=== PATIENT | male | born 1965 | race African-American/Black ===

== ENCOUNTER 2025-02-13 08:07 | Day surgery (SDC) | payer OTHER, SELFPAY ==
--- OUTSIDE RECORDS SUMMARY | 2025-01-28 08:45 | XMS_ITS | Encounter Summary ---
Author Organization [facility] Address [address] [address] Phone Care Team Providers Care Lime Mixer Name Role Phone Regulo Dent MD Primary Care Provider [phone] Reason for Visit * Reason Comments Stage 3b chronic kidney disease ( Encounter Details Date Type Department Care Team (Latest Contact Info) Description 01/28/2025 8:45 AM EDT Office Visit [facility] [address] [address] Sejal Newby ARNP [address] [address] Chronic kidney disease, stage 4 (severe) (HCC) (Primary Dx); Primary hypertension; Vitamin D deficiency, not otherwise specified; Secondary hyperparathyroidism of renal origin (HCC) Social History Tobacco Use Types Packs/Day Years Used Date Smoking Tobacco: Never Smokeless Tobacco: Never Alcohol Use Standard Drinks/Week Comments Never 0 (1 standard drink = 0.6 oz pur e alcohol) Sex and Gender Information Value Date Recorded Sex Assigned at Not on file Legal Sex Male 11:51 AM EDT Gender Identity Not on file Sexual Orientation Not on file documented as of this encounter Last Filed Vital Signs Vital Sign Reading Time Taken Comments Blood Pressure 120/84 01/28/2025 8:49 AM EDT Pulse 62 01/28/2025 8:49 AM EDT Temperature - - Respiratory Rate - - Oxygen Saturation 99% 01/28/2025 8:49 AM EDT Inhaled Oxygen Concentration - - Weight 94.9 kg (209 lb 3.2 oz) 01/28/2025 8:49 A M EDT Height - - Body Mass Index - - documented in this encounter Patient Instructions * Patient Instructions* Sejal Newby ARNP - 01/28/2025 8:45 AM EDT Blood pressure monitoring education: Monitor home blood pressure values after sitting for 5 minutes with back and arm support. Keep a log. Bring your log and blood pressure cuff to your next visit. documented in this encounter Progress Notes * Sejal Newby ARNP - 01/28/2025 8:45 AM EDT Images from the original note were not included. Patient Name: Manjinder Dolan Jr., Male Date of : 1965, 59 y.o. Date: 01/28/2025 History of Present Illness Manjinder Dolan Jr. is a 59 y.o. male with pmh of sinusitis, uncontrolled hypertension 26 years, dyslipidemia, Obese class I , sarah beth on cpap, BPH, presents for management of htn and ckd No dm His bp control has been good recently per patient at home 114/70s He reported Dyspnea on exertion in earlier visit and in had stress echo which was normal - Reports lifestyle changes including cutting out salt, sugar, and red meat, increasing plant-basedfood intake, and walking 5 miles a day. - Reports continued voluntary weight loss - Reports increased fluid intake to 64 fluid ounces per day. The following portions of the patient's chart were reviewed in this encounter and updated as appropriate: Allergies Meds Problems Med Hx Surg Hx Fam Hx EMR: [employer]/ [employer] and [employer] / [employer] Past Medical History: Diagnosis Date Chronic kidney disease Essential hypertension Hypertensive emergency Other and unspecified hyperlipidemia Proteinuria Stage 3 chronic kidney disease (HCC) Vitamin D deficiency, not otherwise specified Review of Systems Constitutional: Negative for chills, fever, weight gain and weight loss. HENT: Negative for congestion, hearing loss and nosebleeds. Eyes: Negative for blurred vision and double vision. Respiratory: Negative for cough and shortness of breath. Cardiovascular: Negative for chest pain, palpitations and leg swelling. Gastrointestinal: Negative for abdominal pain, diarrhea, nausea, vomiting and poor appetite. Genitourinary: Positive for nocturia. Negative for dysuria, flank pain, frequency, hematuria, urgency and urinary hesitancy. 1-2x/night - stable BPH followed by Dr. Swift in Urology Musculoskeletal: Negative. Skin: Negative for rash. Neurological: Negative for dizziness, tingling, numbness and headaches. Psychiatric/Behavioral: Negative. All other systems reviewed and are negative. Medication List Current Outpatient Medications Medication Sig Dispense Refill ALPRAZolam (XANAX) 0.25 MG tablet Take 0.25 mg by mouth at night if needed for anxiety amLODIPine (NORVASC) 10 MG tablet Take 10 mg by mouth 1 (one) time each day carvedilol (COREG) 12.5 MG tablet TAKE 1 TABLET (12.5 MG TOTAL) BY MOUTH IN THE MORNING AND IN THE EVENING WITH MEALS 180 tablet 3 Cholecalciferol 250 MCG (26671 UT) capsule TAKE 1 CAPSULE BY MOUTH EVERY 7 DAYS. 12 capsule 0 Dapagliflozin Propanediol (Farxiga) 10 MG tablet Take 10 mg by mouth 1 (one) time each day in the morning 30 tablet 11 Icosapent Ethyl (Vascepa) 1 g capsule Take by mouth losartan (COZAAR) 50 MG tablet Take 50 mg by mouth 1 (one) time each day meclizine (ANTIVERT) 25 MG tablet Take 25 mg by mouth 3 (three) times a day if needed for dizziness ondansetron ODT (ZOFRAN-ODT) 4 MG dispersible tablet Take 4 mg by mouth every 8 (eight) hours if needed for nausea or vomiting tamsulosin (FLOMAX) 0.4 MG 24 hr capsule Take 0.4 mg by mouth 1 (one) time each day No current facility-administered medications for this visit. Allergy List Allergies Allergen Reactions Lisinopril Physical Exam BP 120/84 (BP Location: Right upper arm, Patient Position: Sitting, BP Cuff Size: Adult) Pulse 62 Wt 209 lb 3.2 oz (94.9 kg) SpO2 99% Vitals reviewed. Constitutional: He is oriented to person, place, and time. He does not appear ill. No distress. HEENT: Mouth/Throat: Oropharynx is clear and moist. Eyes: Conjunctivae are normal. Neck: No JVD present. Cardiovascular: Normal rate and regular rhythm. No murmur heard.He exhibits no edema. Pulmonary/Chest: Effort normal and breath sounds normal. Abdominal: Soft. Musculoskeletal: Normal range of motion. Neurological: He is alert and oriented to person, place, and time. Skin: Skin is warm and dry. No rash noted. No erythema. Psychiatric: He has a normal mood and affect. His behavior is normal. Judgment normal. Labs Chemistry Lab Units 01/24/25 0803 01/07/25 0807 10/03/24 0916 06/13/24 0916 06/12/24 0858 04/03/24 0000 07/26/23 0000 05/11/23 0000 SODIUM mmol/L 138 141 143 141 141 141 143 140 142 POTASSIUM mmol/L 4.0 4 4.4 4.3 4.3 4.2 4.0 3.9 3.9 CO2 mmol/L 22 27 27 25 25 24 24 24 29 BUN mg/dL 35* 38* 30* 41* 41* 40* 41* 30* 23* CREATININE mg/dL 2.52* 2.63* 2.39* 2.65* 2.65* 2.59* 3.17* 2.40* 2.22* CHLORIDE mmol/L 108 109 110 110 110 110 -- 110.0* 109.0* ALBUMIN g/dL 3.5 3.8 3.8 -- 3.8 -- 3.5 3.4* EGFRNAFR -- -- -- -- -- 22 -- 33 EGFR mL/min/1.73m2 28* 27* 30* 27* 27* 28* -- -- -- HEMOGLOBIN g/dL 12.5* -- -- 12.5* -- 11.9* -- 12.6* HEMATOCRIT % 40.7* -- -- 41.1* -- 37.9* -- 38.2* PLATELETS AUTO K/mcL 205 -- -- 227 -- 219 -- 248 Bone Mineral Lab Units 01/24/25 0803 01/07/25 0807 10/03/24 0916 06/13/24 0916 06/12/24 0858 07/26/23 0000 05/11/23 0000 CALCIUM mg/dL 8.8 9.2 9.1 9.2 9.2 9.2 < > 8.7 PHOSPHORUS mg/dL 3.8 -- -- 3.4 -- -- 3.1 PTH pcg/mL 141.8* -- -- 153.2* -- -- -- VIT D 25 HYDROXY ng/mL 34.6 -- -- 9.4* -- -- -- MAGNESIUM mg/dL 2.2 -- -- 2.3 -- -- -- < > = values in this interval not displayed. Urine Lab Units 01/24/25 0810 06/13/24 0917 04/03/24 0000 PROT/CREAT RATIO UR mg/mg creat 0.39* 0.26* 104.3 ALB MG/G CREAT UR mg/g creat 248* 248* 178* -- Iron Studies Lab Units 01/24/25 0803 06/13/24 0916 FERRITIN ng/mL 738* 924* TIBC mcg/dL 306 285 IRON SATURATION % 22 25 Renal Doppler US: 2017 Doppler interrogation of the renal arteries demonstrates increased renal artery velocities in the mid [198 cm/s] to distal [201.2 cm/s] right renal artery possible renal artery suggesting stenosis. IMPRESSION: Possible renal artery stenosis in the mid to distal right renal artery. Renal US( cis)- Right kidney: 12.2 cm in length. No hydronephrosis. Increased parenchymal echogenicity. No stones. No suspicious mass. Simple cyst measuring 5.2 x 4.4 x 4.2 cm in the interpolar kidney. Left kidney: 11.9 cm in length. No hydronephrosis. Increased parenchymal echogenicity. Small echogenic focus within the lower pole with mild posterior shadowing and twinkle artifact which may represent a nonobstructing stone. No suspicious mass. Few simple cysts, largest measuring 2.8 x 2.1 x 2.2 cm with septation in the upper pole. IMPRESSION: 1. Echogenic kidneys likely representing medical renal disease. 2. Simple cysts present in both kidneys. Largest on the right measures 5.2 x 4.4 x 4.2 cm. Largest on the left measures 2.8 x 2.1 x 2.2 cm. 3. Likely small nonobstructing stone within the left kidney lower pole. Assessment & Plan 1. Chronic kidney disease, stage 4 (severe) (HCC) 2. Primary hypertension 3. Vitamin D deficiency, not otherwise specified 4. Secondary hyperparathyroidism of renal origin (HCC) Noted that his cr has been fluctuating between 1.4--> 1.6 from 2012 to 2016. cr 2.2 --> 2.4---> 2.7--> 3.2---> 2.65 --> 2.3, egfr 30 (CKD epi/ cyst- 1.7). Normal lytes/Ca Noted that he had had microalbuminuria prior to 2016. albuminuria improved from 1.6 g--> 100 ---> 178 mg latest on dapaglifozin UPC ratio mildly elevated at 0.26 gm as of 06/13/2024 Nn carvedilol 12.5 mg twice a day. Blood pressure is good today and controlled at home per patient - PTH: 153 as of 06/2024 - borderline - HbA1c: 4.7 Plan Continue losartan 50 mg and dapaglifozin to 10mg He has albuminuria likely due to longstanding hypertension and obesity causing secondary FSGS. Negative Immunofixation UA is bland except for the albuminuria. Maintain good BP control No DM - normal HgbA1c Genetic testing Negative as of 07/2024 Will discuss biopsy in follow up once initial work up complete PTH 141, normal Ca/Phos, consider calcitriol when PTH >150 Taking Vit D supp for Vit D deficiency with improved Vit D25 level Return in about 3 months (around 04/30/2025) for Next scheduled follow-up with Dr. Vivar. RAFAEL Randall Cosigned by Adryan Stern MD at 01/28/2025 12:26 PM EDT documented in this encounter Plan of Treatment Upcoming Encounters Date Type Department Care Team (Late st Contact Info) Description 05/24/2025 9:15 AM EDT Office Visit [facility] [address] [phone] Foster An MD [address] [facility] [address] [place] [address] Scheduled Orders Name Type Priority Associated Diagnoses Orde r Schedule PTH, intact Lab Routine Chronic kidney disease, stage 4 (severe) (HCC) Primary hypertension Vitamin D deficiency, not otherwise specified Secondary hyperparathyroidism of renal origin (HCC) Expected: 04/14/2025, Expires: 05/31/2025 Renal function panel Lab Routine Chronic kidney disease, stage 4 (severe) (HCC) Primary hypertension Vitamin D deficiency, not otherwise specified Secondary hyperparathyroidism of renal origin (HCC) Expected: 04/14/2025, Expires: 05/31/2025 CBC Lab Routine Chronic kidney disease, stage 4 (severe) (HCC) Primary hypertension Vitamin D deficiency, not otherwise specified Secondary hyperparathyroidism of renal origin (HCC) Expected: 04/14/2025, Expires: 05/31/2025 Urine Albumin / Creatinine Ratio Lab Routine Chronic kidney disease, stage 4 (severe) (HCC) Primary hypertension Vitamin D deficiency, not otherwise specified Secondary hyperparathyroidism of renal origin (HCC) Expected: 04/14/2025, Expires: 05/31/2025 Urine Protein / creatinine ratio Lab Routine Chronic kidney disease, stage 4 (severe) (HCC) Primary hypertension Vitamin D deficiency, not otherwise specified Secondary hyperparathyroidism of renal origin (HCC) Expected: 04/14/2025, Expires: 05/31/2025 documented as of this encounter Visit Diagnoses Diagnosis Chronic kidney disease, stage 4 (severe) (HCC)- Primary Primary hypertension Vitamin D deficiency, not otherwise specified Secondary hyperparathyroidism of renal origin (HCC) Secondary hyperparathyroidism of renal origin documented in this encounter Care Teams Lime Mixer Relationship Specialty Start Date End Date Regulo Dent MD [address] [facility] [address] [place] [address] PCP - General Internal Medicine 05/30/23 documented as of this encounter
--- OUTSIDE RECORDS SUMMARY | 2025-01-31 15:02 | XMS_ITS | Clinical Summary ---
Author Organization [facility] Address [address] [place] [address] [address] Man Name Role Phone Unavailable Primary Care Provider Unavailabl e Social History Tobacco Use Types Packs/Day Years Used Date Smoking Tobacco: Never Assessed Sex and Gender Information Value Date Recorded Sex Assigned at Not on file Gender Identity Not on file Sexual Orientation Not on file Plan of Treatment Health Maintenance Due Date Last Done Comments Hepatitis C Screening 1965 COVID-19 Vaccine (#1) 01/28/1964 Depression Screening 1975 Preventative Health Evaluation 1981 DTap / Tdap / Td (1 - Tdap) 1982 Colon Cancer Screening (Colonoscopy) 2008 Shingrix-Zoster Vaccine (1 of 2) 2013 Influenza Vaccine (Season Ended) 2025 RSV Adult > 60+ Yrs or Pregn ant (1 - 1-dose 75+ series) 2038 Hepatitis B Vaccines Aged Out No long er eligible based on patient's age to complete this topic Pneumococcal Vaccine Aged Out No long er eligible based on patient's age to complete this topic RSV Ped < 20 months Aged Out No longe r eligible based on patient's age to complete this topic
--- OUTSIDE RECORDS SUMMARY | 2025-01-31 15:03 | XMS_ITS | Clinical Summary ---
Author Organization [address] Address [address] [place] [phone] Phone Care Team Providers Care Ambulatory Care Name Role Phone Regulo Dent MD Primary Care Provider [phone] Social History Tobacco Use Types Packs/Day Years Used Date Smoking Tobacco: Never Assessed Sex and Gender Information Value Date Recorded Sex Assigned at Not on file Legal Sex Male 9:13 PM EST Gender Identity Not on file Sexual Orientation Not on file Plan of Treatment Health Maintenance Due Date Last Done Comments DTaP,Tdap,and Td Vaccines (1 - Tdap) 1982 Pneumococcal Vaccine: 50+ Years (1 of 1 - PCV) 2013 Zoster Vaccines (1 of 2) 2013 Colorectal Cancer Screening: Colonoscopy 08/26/2023 Depression Screening 08/26/2023 HIV Screening 08/26/2023 Hepatitis C Screening 08/26/2023 Social Influencers of Health Screening 08/26/2023 COVID-19 Vaccine ( season) 2024 06/28/2023, 07/13/2021, 10/30/2020, Additional history exists Influenza Vaccine (#1) 2025 , 07/13/2021, 04/21/2020 Hypertension/CHF/CAD Annual BMP Blood Test 01/24/2026 01/24/2025, 01/07/2025, 10/03/2024, Additional history exists Cholesterol Screening (Lipid Panel) 06/12/2029 06/12/2024, 06/12/2024 RSV Immunization Adult Patients (1 - 1-dose 75+ series) 2038 HIB Vaccines Aged Out No longer eligi ble based on patient's age to complete this topic HPV Vaccines Aged Out No longer eligi ble based on patient's age to complete this topic Hepatitis A Vaccines Aged Out No long er eligible based on patient's age to complete this topic Hepatitis B Vaccines Aged Out No long er eligible based on patient's age to complete this topic IPV Vaccines Aged Out No longer eligi ble based on patient's age to complete this topic MMR Vaccines Aged Out No longer eligi ble based on patient's age to complete this topic Meningococcal ACWY Vaccine Aged Out N o longer eligible based on patient's age to complete this topic Meningococcal B Vaccine Aged Out No l onger eligible based on patient's age to complete this topic Pneumococcal Vaccine: Pediatrics (0 to 5 Years) and At-Risk Patients (6 to 64 Years) Aged Out No longer eligible based on patient's age to complete this topic RSV Immunization Patients Under 20 months Aged Out No longer eligible based on patient's age to complete this topic Varicella Vaccines Aged Out No longer eligible based on patient's age to complete this topic Procedures Procedure Name Priority Date/Time Associated Diagnosis Comments URINALYSIS WITH REFLEX MICROSCOPIC Routine 01/24/2025 8:10 AM EDT Chronic kidney disease (CKD) stage G3b/A1, moderately decreased glomerular filtration rate (GFR) between 30-44 mL/min/1.73 square meter and albuminuria creatinine ratio les* (CMS/HCC V24, CMS/HCC V28) MICROALBUMIN CREATININE URINE RATIO Routine 01/24/2025 8:10 AM EDT Chronic kidney disease (CKD) stage G3b/A1, moderately decreased glomerular filtration rate (GFR) between 30-44 mL/min/1.73 square meter and albuminuria creatinine ratio les* (CMS/HCC V24, CMS/HCC V28) PROTEIN AND CREATININE WITH RATIO, URINE Routine 01/24/2025 8:10 AM EDT Chronic kidney disease (CKD) stage G3b/A1, moderately decreased glomerular filtration rate (GFR) between 30-44 mL/min/1.73 square meter and albuminuria creatinine ratio les* (CMS/HCC V24, CMS/HCC V28) URINALYSIS WITH REFLEX MICROSCOPIC Routine 01/24/2025 8:10 AM EDT Chronic kidney disease (CKD) stage G3b/A1, moderately decreased glomerular filtration rate (GFR) between 30-44 mL/min/1.73 square meter and albuminuria creatinine ratio les* (CMS/HCC V24, CMS/HCC V28) IN IMMUNOFIXATION ELECTROPHORESIS SERUM Routine 01/24/2025 8:03 AM EDT Chronic kidney disease (CKD) stage G3b/A1, moderately decreased glomerular filtration rate (GFR) between 30-44 mL/min/1.73 square meter and albuminuria creatinine ratio les* (CMS/HCC V24, CMS/HCC V28) IMMUNOGLOBULINS IGG, IGA, IGM Routine 01/24/2025 8:03 AM EDT Chronic kidney disease (CKD) stage G3b/A1, moderately decreased glomerular filtration rate (GFR) between 30-44 mL/min/1.73 square meter and albuminuria creatinine ratio les* (CMS/HCC V24, CMS/HCC V28) CBC WITH AUTO DIFFERENTIAL Routine 01/24/2025 8:03 AM EDT Chronic kidney disease (CKD) stage G3b/A1, moderately decreased glomerular filtration rate (GFR) between 30-44 mL/min/1.73 square meter and albuminuria creatinine ratio les* (CMS/HCC V24, CMS/HCC V28) IMMUNOFIXATION ELECTROPHORESIS Routine 01/24/2025 8:03 AM EDT Chronic kidney disease (CKD) stage G3b/A1, moderately decreased glomerular filtration rate (GFR) between 30-44 mL/min/1.73 square meter and albuminuria creatinine ratio les* (CMS/HCC V24, CMS/HCC V28) KAPPA-LAMBDA QUANTITATIVE FREE LIGHT CHAINS Routine 01/24/2025 8:03 AM EDT Chronic kidney disease (CKD) stage G3b/A1, moderately decreased glomerular filtration rate (GFR) between 30-44 mL/min/1.73 square meter and albuminuria creatinine ratio les* (CMS/HCC V24, CMS/HCC V28) URIC ACID Routine 01/24/2025 8:03 AM EDT Chronic kidney disease (CKD) stage G3b/A1, moderately decreased glomerular filtration rate (GFR) between 30-44 mL/min/1.73 square meter and albuminuria creatinine ratio les* (CMS/HCC V24, CMS/HCC V28) FERRITIN Routine 01/24/2025 8:03 AM EDT Chronic kidney disease (CKD) stage G3b/A1, moderately decreased glomerular filtration rate (GFR) between 30-44 mL/min/1.73 square meter and albuminuria creatinine ratio les* (CMS/HCC V24, CMS/HCC V28) IRON AND TIBC Routine 01/24/2025 8:03 AM EDT Chronic kidney disease (CKD) stage G3b/A1, moderately decreased glomerular filtration rate (GFR) between 30-44 mL/min/1.73 square meter and albuminuria creatinine ratio les* (CMS/HCC V24, CMS/HCC V28) HEMOGLOBIN A1C Routine 01/24/2025 8:03 AM EDT Chronic kidney disease (CKD) stage G3b/A1, moderately decreased glomerular filtration rate (GFR) between 30-44 mL/min/1.73 square meter and albuminuria creatinine ratio les* (CMS/HCC V24, CMS/HCC V28) MAGNESIUM Routine 01/24/2025 8:03 AM EDT Chronic kidney disease (CKD) stage G3b/A1, moderately decreased glomerular filtration rate (GFR) between 30-44 mL/min/1.73 square meter and albuminuria creatinine ratio les* (CMS/HCC V24, CMS/HCC V28) VITAMIN D 25 HYDROXY Routine 01/24/2025 8:03 AM EDT Chronic kidney disease (CKD) stage G3b/A1, moderately decreased glomerular filtration rate (GFR) between 30-44 mL/min/1.73 square meter and albuminuria creatinine ratio les* (CMS/HCC V24, CMS/HCC V28) PARATHYROID HORMONE INTACT Routine 01/24/2025 8:03 AM EDT Chronic kidney disease (CKD) stage G3b/A1, moderately decreased glomerular filtration rate (GFR) between 30-44 mL/min/1.73 square meter and albuminuria creatinine ratio les* (CMS/HCC V24, CMS/HCC V28) RENAL FUNCTION PANEL Routine 01/24/2025 8:03 AM EDT Chronic kidney disease (CKD) stage G3b/A1, moderately decreased glomerular filtration rate (GFR) between 30-44 mL/min/1.73 square meter and albuminuria creatinine ratio les* (CMS/HCC V24, CMS/HCC V28) CBC AND DIFFERENTIAL Routine 01/24/2025 8:03 AM EDT Chronic kidney disease (CKD) stage G3b/A1, moderately decreased glomerular filtration rate (GFR) between 30-44 mL/min/1.73 square meter and albuminuria creatinine ratio les* (CMS/HCC V24, CMS/HCC V28) CYSTATIN C, SERUM Routine 01/24/2025 8:0 3 AM EDT Chronic kidney disease (CKD) stage G3b/A1, moderately decreased glomerular filtration rate (GFR) between 30-44 mL/min/1.73 square meter and albuminuria creatinine ratio les* (CMS/HCC V24, CMS/HCC V28) THYROID STIMULATING HORMONE Routine 01/07/2025 8:07 AM EDT Hypertension, essential Acute arthritis Hypothyroidism, postsurgical SEDIMENTATION RATE Routine 01/07/2025 8: 07 AM EDT Hypertension, essential Acute arthritis Hypothyroidism, postsurgical COMPREHENSIVE METABOLIC PANEL Routine 01/07/2025 8:07 AM EDT Hypertension, essential Acute arthritis Hypothyroidism, postsurgical LIPID PANEL WITH REFLEX TO DIRECT LDL Routine 06/12/2024 8:58 AM EST Anemia, unspecified Hyperlipidemia Blood glucose elevated Special screening, prostate cancer Acute arthritis Fatigue from Last 3 Months or Most Recently Relevant to Health Maintenance Results * (ABNORMAL) Urinalysis with reflex microscopic (01/24/2025 8:10 AM EDT) [facility] Specific [place] Urine 1.018 1.003 - 1.030 LAB URINALYSIS - AUTOMATED METHOD 01/24/2025 9:56 AM [facility] pH, Urine 5.0 5.0 - 8.0 pH LAB URINALYSIS - AUTOMATED METHOD 01/24/2025 9:56 AM [facility] Leukocytes, Urine Negative Negative LAB URINALYSIS - AUTOMATED METHOD 01/24/2025 9:56 AM [facility] Nitrite, Urine Negative Negative LAB URINALYSIS - AUTOMATED METHOD 01/24/2025 9:56 AM [facility] Protein, Urine 100(A) <=Trace mg/dL LAB URINALYSIS - AUTOMATED METHOD 01/24/2025 9:56 AM [facility] Glucose, Urine 500(A) Negative mg/dL LAB URINALYSIS - AUTOMATED METHOD 01/24/2025 9:56 AM [facility] Ketones, Urine Negative Negative mg/dL LAB URINALYSIS - AUTOMATED METHOD 01/24/2025 9:56 AM [facility] Urobilinogen, Urine 0.2 0.2 - 1.0 mg/dL LAB URINALYSIS - AUTOMATED METHOD 01/24/2025 9:56 AM [facility] Bilirubin, Urine Negative Negative LAB URINALYSIS - AUTOMATED METHOD 01/24/2025 9:56 AM [facility] Blood, Urine Negative Negative LAB URINALYSIS - AUTOMATED METHOD 01/24/2025 9:56 AM [facility] RBC, Urine 2.7 0 - 4 /HPF LAB URINALYSIS - AUTOMATED METHOD 01/24/2025 9:56 AM [facility] WBC, Urine 1.0 0 - 4 /HPF LAB URINALYSIS - AUTOMATED METHOD 01/24/2025 9:56 AM [facility] Squamous Epithelial, Urine 13 0 - 60 /LPF LAB URINALYSIS - AUTOMATED METHOD 01/24/2025 9:56 AM EDT [facility] Bacteria, Urine Negative Negative /HPF LAB URINALYSIS - AUTOMATED METHOD 01/24/2025 9:56 AM EDT [facility] Hyaline Casts, Urine 4.0(H) 0 - 3 /LPF LAB URINALYSIS - AUTOMATED METHOD 01/24/2025 9:56 AM EDT [facility] Urine Urine specimen obtained by clean catch procedure / Unknown Non-blood Collection / Unknown 01/24/2025 8:10 AM EDT 01/24/2025 9:43 AM EDT us Foster An MD LAB URINE ORDERABLES Final Result Performing Organization Address [facility]/ZIP Co de Phone Number [facility] [address] [place] [address], [place] [phone] * (ABNORMAL) Protein and creatinine with ratio, urine (01/24/2025 8:10 AM EDT) Protein, Urine 76 mg/dL LAB CHEMISTRY METHOD 01/24/2025 10:29 AM EDT [facility] Prot/Creat, Ur 0.39(H) <=0.20 mg/mg creat LAB CHEMISTRY METHOD 01/24/2025 10:29 AM EDT [facility] Creatinine, Urine 196.0 mg/dL LAB CHEMISTRY METHOD 01/24/2025 10:29 AM EDT [facility] Urine Urine specimen obtained by clean catch procedure / Unknown Non-blood Collection / Unknown 01/24/2025 8:10 AM EDT 01/24/2025 9:43 AM EDT us Foster An MD LAB URINE ORDERABLES Final Result Performing Organization Address City/[facility]/ZIP Co de Phone Number [facility] [address] [place] [address], [place] [phone] * (ABNORMAL) Microalbumin creatinine urine ratio (01/24/2025 8:10 AM EDT) Creatinine, Urine 196.0 mg/dL LAB CHEMISTRY METHOD 01/24/2025 11:03 AM EDT [facility] Microalb, Ur 486.0(H) 0.0 - 29.0 mg/L LAB CHEMISTRY METHOD 01/24/2025 11:03 AM EDT [facility] Microalb/Crea t Ratio 248(H) <30 mg/g creat LAB CHEMISTRY METHOD 01/24/2025 11:03 AM EDT [facility] Urine Urine specimen obtained by clean catch procedure / Unknown Non-blood Collection / Unknown 01/24/2025 8:10 AM EDT 01/24/2025 9:43 AM EDT Foster An MD LAB URINE ORDERABLES Final Result [facility] [address] [place] [address], [place] [phone] * Pathologist Review Immunofixation (01/24/2025 8:03 AM EDT) Pathologist Interpretation 01/26/2025 12:58 PM EDT [facility] Blood Venous blood specimen / Unknown Venipuncture / Unknown 01/24/2025 8:03 AM EDT 01/24/2025 9:42 AM EDT Foster An MD LAB BLOOD ORDERABLES Final Result [facility] [address] [place] [address], [place] [phone] * (ABNORMAL) [place]-lambda free light chains, quantitative (01/24/2025 8:03 AM EDT) [place] Free Light Chain 4.08(H) 0.33 - 1.94 mg/dL 01/28/2025 2:28 PM EDT [facility] Lambda Free Light Chain 2.72(H) 0.57 - 2.63 mg/dL 01/28/2025 2:28 PM EDT [facility] [place]/Lambda FLC Ratio 1.50 0.26 - 1.65 01/28/2025 2:28 PM EDT [facility] Comment: Test performed at [facility], [address] [place] [address] Jimena Sanchez MD, PhD - Photographic Enlarger Operator Blood Venous blood specimen / Unknown Venipuncture / Unknown 01/24/2025 8:03 AM EDT 01/24/2025 9:42 AM EDT Foster An MD LAB BLOOD ORDERABLES Final Result [facility] [address] [place] [address] * (ABNORMAL) Cystatin c, serum (01/24/2025 8:03 AM EDT) Pathologist [facility] Cystatin C 1.8(H) 0.5 - 1.2 mg/L 01/26/2025 7:43 AM EDT [facility] Comment: Test performed at [facility], [address] , [place] [address] Jimena Sanchez MD, PhD - Photographic Enlarger Operator Blood Venous blood specimen / Unknown Venipuncture / Unknown 01/24/2025 8:03 AM EDT 01/24/2025 9:42 AM EDT Foster An MD LAB BLOOD ORDERABLES Final Result [facility] [address] [place] [address] * (ABNORMAL) CBC auto differential (01/24/2025 8:03 AM EDT) [facility] WBC 5.0 4.8 - 10.8 K/mcL LAB HEMETOLOGY METHOD 01/24/2025 10:04 AM [facility] RBC 4.30(L) 4.50 - 5.50 M/mcL LAB HEMETOLOGY METHOD 01/24/2025 10:04 AM [facility] Hemoglobin 12.5(L) 13.5 - 17.5 g/dL LAB HEMETOLOGY METHOD 01/24/2025 10:04 AM [facility] Hematocrit 40.7(L) 42.0 - 54.0 % LAB HEMETOLOGY METHOD 01/24/2025 10:04 AM [facility] MCV 95.3 79.0 - 98.0 FL LAB HEMETOLOGY METHOD 01/24/2025 10:04 AM [facility] MCH 29.3 27.0 - 32.0 pcg LAB HEMETOLOGY METHOD 01/24/2025 10:04 AM [facility] MCHC 30.7(L) 32.0 - 37.0 g/dL LAB HEMETOLOGY METHOD 01/24/2025 10:04 AM [facility] RDW 13.4 11.0 - 15.0 % LAB HEMETOLOGY METHOD 01/24/2025 10:04 AM [facility] Platelets 205 130 - 400 K/mcL LAB HEMETOLOGY METHOD 01/24/2025 10:04 AM [facility] MPV 10.8 7.0 - 11.0 FL LAB HEMETOLOGY METHOD 01/24/2025 10:04 AM [facility] NRBC 0.0 <1.0 % LAB HEMETOLOGY METHOD 01/24/2025 10:04 AM [facility] NRBC Absolute 0.00 <0.10 K/mcL LAB HEMETOLOGY METHOD 01/24/2025 10:04 AM [facility] Neutrophils Relative 47.7 % LAB HEMETOLOGY METHOD 01/24/2025 10:04 AM [facility] Lymphocytes Relative 39.0 % LAB HEMETOLOGY METHOD 01/24/2025 10:04 AM [facility] Monocytes Relative 9.3 % LAB HEMETOLOGY METHOD 01/24/2025 10:04 AM [facility] Eosinophils Relative 3.2 % LAB HEMETOLOGY METHOD 01/24/2025 10:04 AM [facility] Basophils Relative 0.6 % LAB HEMETOLOGY METHOD 01/24/2025 10:04 AM [facility] Immature Granulocytes Relative 0.2 % LAB HEMETOLOGY METHOD 01/24/2025 10:04 AM [facility] Neutrophils Absolute 2.40 1.50 - 7.00 K/mcL LAB HEMETOLOGY METHOD 01/24/2025 10:04 AM [facility] Lymphocytes Absolute 1.96 1.00 - 5.00 K/mcL LAB HEMETOLOGY METHOD 01/24/2025 10:04 AM [facility] Monocytes Absolute 0.47 0.20 - 1.00 K/mcL LAB HEMETOLOGY METHOD 01/24/2025 10:04 AM [facility] Eosinophils Absolute 0.16 0.00 - 0.50 K/mcL LAB HEMETOLOGY METHOD 01/24/2025 10:04 AM [facility] Basophils Absolute 0.03 0.00 - 0.20 K/mcL LAB HEMETOLOGY METHOD 01/24/2025 10:04 AM [facility] Immature Granulocytes Absolute 0.01 0.00 - 0.03 K/[facility] LAB HEMETOLOGY METHOD 01/24/2025 10:04 AM EDT [facility] Blood Venous blood specimen / Unknown Venipuncture / Unknown 01/24/2025 8:03 AM EDT 01/24/2025 9:31 AM EDT us Foster An MD LAB BLOOD ORDERABLES Final Result [facility] [address] [place] [address], [place] [phone] * Iron and TIBC (01/24/2025 8:03 AM EDT) Pathologist [facility] Iron 67 50 - 160 mcg/dL LAB CHEMISTRY METHOD 01/24/2025 10:50 AM EDT [facility] TIBC 306 250 - 450 mcg/dL LAB CHEMISTRY METHOD 01/24/2025 10:50 AM EDT [facility] Iron Saturation 22 20 - 50 % LAB CHEMISTRY METHOD 01/24/2025 10:50 AM EDT [facility] Blood Venous blood specimen / Unknown Venipuncture / Unknown 01/24/2025 8:03 AM EDT 01/24/2025 9:42 AM EDT us Foster An MD LAB BLOOD ORDERABLES Final Result [facility] [address] [place] [address], [place] [phone] * Vitamin D 25 hydroxy (01/24/2025 8:03 AM EDT) Vit D, 25-Hydroxy 34.6 30.0 - 80.0 ng/mL LAB CHEMISTRY METHOD 01/24/2025 11:25 AM EDT [facility] Blood Venous blood specimen / Unknown Venipuncture / Unknown 01/24/2025 8:03 AM EDT 01/24/2025 9:42 AM EDT us Foster An MD LAB BLOOD ORDERABLES Final Result Performing Organization Address [facility]/ZIP Co de Phone Number [facility] [address] [place] [address], [place] [phone] * Immunofixation electrophoresis serum (01/24/2025 8:03 AM EDT) [facility] Immunofixation Result, Serum No monoclonal immunoglobulins detected. LAB CHEMISTRY METHOD 01/26/2025 12:58 PM EDT [facility] Blood Venous blood specimen / Unknown Venipuncture / Unknown 01/24/2025 8:03 AM EDT 01/24/2025 9:42 AM EDT us Foster An MD LAB BLOOD ORDERABLES Final Result Performing Organization Address [facility]/ZIP Co de Phone Number [facility] [address] [place] [address], [place] [phone] * (ABNORMAL) Immunoglobulins IgG, IgA, IgM (01/24/2025 8:03 AM EDT) [facility] Total IgG 1,420 549 - 1,584 mg/dL LAB CHEMISTRY METHOD 01/25/2025 11:41 AM EDT [facility] IgA 406(H) 61 - 348 mg/dL LAB CHEMISTRY METHOD 01/25/2025 11:41 AM EDT [facility] IgM 86 23 - 259 mg/dL LAB CHEMISTRY METHOD 01/25/2025 11:41 AM EDT [facility] Blood Venous blood specimen / Unknown Venipuncture / Unknown 01/24/2025 8:03 AM EDT 01/24/2025 9:42 AM EDT us Foster An MD LAB BLOOD ORDERABLES Final Result Performing Organization Address City/[facility]/ZIP Co de Phone Number [facility] [address] [place] [address], [place] [phone] * Uric acid (01/24/2025 8:03 AM EDT) Uric Acid 7.7 3.7 - 9.2 mg/dL LAB CHEMISTRY METHOD 01/24/2025 10:50 AM EDT [facility] Blood Venous blood specimen / Unknown Venipuncture / Unknown 01/24/2025 8:03 AM EDT 01/24/2025 9:42 AM EDT Foster An MD LAB BLOOD ORDERABLES Final Result Performing Organization Address [facility] Co de Phone Number [facility] [address] [place] [address], [place] [phone] * (ABNORMAL) Parathyroid hormone intact (01/24/2025 8:03 AM EDT) PTH 141.8(H) 18.5 - 88.0 pcg/mL LAB CHEMISTRY METHOD 01/24/2025 11:25 AM EDT [facility] Blood Venous blood specimen / Unknown Venipuncture / Unknown 01/24/2025 8:03 AM EDT 01/24/2025 9:42 AM EDT Foster An MD LAB BLOOD ORDERABLES Final Result Performing Organization Address City/[facility]/ZIP Co de Phone Number [facility] [address] [place] [address], [place] [phone] * Magnesium (01/24/2025 8:03 AM EDT) Magnesium 2.2 1.9 - 2.6 mg/dL LAB CHEMISTRY METHOD 01/24/2025 10:38 AM EDT [facility] Blood Venous blood specimen / Unknown Venipuncture / Unknown 01/24/2025 8:03 AM EDT 01/24/2025 9:42 AM EDT us Foster An MD LAB BLOOD ORDERABLES Final Result Performing Organization Address [facility]/ZIP Co de Phone Number [facility] [address] [place] [address], [place] [phone] * Hemoglobin A1c (01/24/2025 8:03 AM EDT) Hemoglobin A1C 4.7 <6.5 % LAB CHEMISTRY METHOD 01/24/2025 1:42 PM EDT [facility] Mean Bld Glu Estim. 88 mg/dL LAB CHEMISTRY METHOD 01/24/2025 1:42 PM EDT [facility] Blood Venous blood specimen / Unknown Venipuncture / Unknown 01/24/2025 8:03 AM EDT 01/24/2025 9:31 AM EDT us Foster An MD LAB BLOOD ORDERABLES Final Result Performing Organization Address [facility] Co de Phone Number [facility] [address] [place] [address], [place] [phone] * (ABNORMAL) Ferritin (01/24/2025 8:03 AM EDT) Ferritin 738(H) 26 - 388 ng/mL LAB CHEMISTRY METHOD 01/24/2025 10:50 AM EDT [facility] Blood Venous blood specimen / Unknown Venipuncture / Unknown 01/24/2025 8:03 AM EDT 01/24/2025 9:42 AM EDT us Foster An MD LAB BLOOD ORDERABLES Final Result [facility] [address] [place] [address], * (ABNORMAL) Renal function panel (01/24/2025 8:03 AM EDT) Sodium 138 133 - 145 mmol/L LAB CHEMISTRY METHOD 01/24/2025 10:50 AM EDT [facility] Potassium 4.0 3.5 - 5.5 mmol/L LAB CHEMISTRY METHOD 01/24/2025 10:50 AM T [facility] Chloride 108 96 - 110 mmol/L LAB CHEMISTRY METHOD 01/24/2025 10:50 AM [facility] CO2 22 21 - 32 mmol/L LAB CHEMISTRY METHOD 01/24/2025 10:50 AM [facility] Anion Gap 8 3 - 11 LAB CHEMISTRY METHOD 01/24/2025 10:50 AM [facility] Glucose 90 70 - 100 mg/dL LAB CHEMISTRY METHOD 01/24/2025 10:50 AM [facility] BUN 35(H) 5 - 25 mg/dL LAB CHEMISTRY METHOD 01/24/2025 10:50 AM [facility] Creatinine 2.52(H) 0.70 - 1.30 mg/dL LAB CHEMISTRY METHOD 01/24/2025 10:50 AM [facility] eGFR 28(L) >=60 mL/min/1. 73m2 LAB CHEMISTRY METHOD 01/24/2025 10:50 AM [facility] Comment:Calculation based on the Chronic Kidney Disease Epidemiology Collaboration (CKD-EPI) equation refit without adjustment for race. BUN/Creatinine Ratio 13.9 LAB CHEMISTRY METHOD 01/24/2025 10:50 AM [facility] Albumin 3.5 3.2 - 5.0 g/dL LAB CHEMISTRY METHOD 01/24/2025 10:50 AM [facility] Calcium 8.8 8.5 - 10.5 mg/dL LAB CHEMISTRY METHOD 01/24/2025 10:50 AM EDT [facility] Phosphorus 3.8 2.5 - 4.5 mg/dL LAB CHEMISTRY METHOD 01/24/2025 10:50 AM EDT [facility] Blood Venous blood specimen / Unknown Venipuncture / Unknown 01/24/2025 8:03 AM EDT 01/24/2025 9:42 AM EDT Foster An MD LAB BLOOD ORDERABLES Final Result [facility] [address] [place] [address], [place] [phone] * Sedimentation rate (01/07/2025 8:07 AM EDT) Sed Rate 7 0 - 20 mm/hr LAB HEMETOLOGY METHOD 01/07/2025 10:02 AM EDT [facility] Blood Venous blood specimen / Unknown Venipuncture / Unknown 01/07/2025 8:07 AM EDT 01/07/2025 8:31 AM EDT Regulo Dent MD LAB BLOOD ORDERABLES Final Res ult [facility] [address] [place] [address], [place] [phone] * Thyroid stimulating hormone (01/07/2025 8:07 AM EDT) TSH 2.18 0.40 - 4.00 mcIU/mL LAB CHEMISTRY METHOD 01/07/2025 4:29 PM EDT [facility] Blood Venous blood specimen / Unknown Venipuncture / Unknown 01/07/2025 8:07 AM EDT 01/07/2025 8:32 AM EDT us Regulo Dent MD LAB BLOOD ORDERABLES Final Res ult [facility] [address] [place] [address], * (ABNORMAL) Comprehensive metabolic panel (01/07/2025 8:07 AM EDT) Sodium 141 133 - 145 mmol/L LAB CHEMISTRY METHOD 01/07/2025 9:03 AM [facility] Potassium 4.0 3.5 - 5.5 mmol/L LAB CHEMISTRY METHOD 01/07/2025 9:03 AM [facility] Chloride 109 96 - 110 mmol/L LAB CHEMISTRY METHOD 01/07/2025 9:03 AM [facility] CO2 27 21 - 32 mmol/L LAB CHEMISTRY METHOD 01/07/2025 9:03 AM [facility] Anion Gap 5 3 - 11 LAB CHEMISTRY METHOD 01/07/2025 9:03 AM [facility] Glucose 95 70 - 100 mg/dL LAB CHEMISTRY METHOD 01/07/2025 9:03 AM [facility] BUN 38(H) 5 - 25 mg/dL LAB CHEMISTRY METHOD 01/07/2025 9:03 AM [facility] Creatinine 2.63(H) 0.70 - 1.30 mg/dL LAB CHEMISTRY METHOD 01/07/2025 9:03 AM [facility] eGFR 27(L) >=60 mL/min/1. 73m2 LAB CHEMISTRY METHOD 01/07/2025 9:03 AM [facility] Comment:Calculation based on the Chronic Kidney Disease Epidemiology Collaboration (CKD-EPI) equation refit without adjustment for race. BUN/Creatinine Ratio 14.4 LAB CHEMISTRY METHOD 01/07/2025 9:03 AM [facility] Calcium 9.2 8.5 - 10.5 mg/dL LAB CHEMISTRY METHOD 01/07/2025 9:03 AM [facility] AST (SGOT) 25 10 - 42 unit/L LAB CHEMISTRY METHOD 01/07/2025 9:03 AM [facility] ALT (SGPT) 22 10 - 60 unit/L LAB CHEMISTRY METHOD 01/07/2025 9:03 AM [facility] Alkaline Phosphatase 82 42 - 121 unit/L LAB CHEMISTRY METHOD 01/07/2025 9:03 AM [facility] Total Protein 7.3 6.0 - 8.0 g/dL LAB CHEMISTRY METHOD 01/07/2025 9:03 AM [facility] Albumin 3.8 3.2 - 5.0 g/dL LAB CHEMISTRY METHOD 01/07/2025 9:03 AM [facility] Total Bilirubin 0.7 0.0 - 1.4 mg/dL LAB CHEMISTRY METHOD 01/07/2025 9:03 AM [facility] Blood Venous blood specimen / Unknown Venipuncture / Unknown 01/07/2025 8:07 AM EDT 01/07/2025 8:32 AM EDT us Regulo Dent MD LAB BLOOD ORDERABLES Final Res ult [facility] [address] [place] [address], * (ABNORMAL) Lipid panel with reflex to direct LDL (06/12/2024 8:58 AM EST) Cholesterol 165 0 - 200 mg/dL LAB CHEMISTRY METHOD 06/12/2024 10:27 AM EST [facility] Triglycerides 852(H) 0 - 150 mg/dL LAB CHEMISTRY METHOD 06/12/2024 10:27 AM EST [facility] HDL 22(L) >=40 mg/dL LAB CHEMISTRY METHOD 06/12/2024 10:27 AM EST [facility] LDL Calculated LAB CHEMISTRY METHOD 06/12/2024 10:27 AM [facility] Comment: Unable to calculate when triglycerides >400 mg/dL. Triglyceride value is >= 500. Calculated LDL is not meaningful. Direct LDL has been added. VLDL Cholesterol Ole LAB CHEMISTRY METHOD 06/12/2024 10:27 AM [facility] Comment:Unable to calculate when triglycerides >400 mg/dL. Non HDL Chol. (LDL+VLDL) LAB CHEMISTRY METHOD 06/12/2024 10:27 AM [facility] Comment:Unable to calculate when triglycerides >400 mg/dL. Chol/HDL Ratio 7.5(H) 0.0 - 4.4 LAB CHEMISTRY METHOD 06/12/2024 10:27 AM [facility] Blood Venous blood specimen / Unknown Venipuncture / Unknown 06/12/2024 8:58 AM EST 06/12/2024 9:07 AM EST Regulo Dent MD LAB BLOOD ORDERABLES Final Res ult [facility] [address] [place] [address], from Last 3 Months or Most Recently Relevant to Health Maintenance Insurance [facility] Care Teams Ambulatory Care Relationship Specialty Start Date End Date Regulo Dent MD [address] [place] [address] PCP - General 08/22/23
--- OUTSIDE RECORDS SUMMARY | 2025-01-31 15:03 | XMS_ITS | Clinical Summary ---
Author Organization [facility] Address [address] [place] [id number] Care Team Providers Care Configuration Specialist Name Role Phone Regulo Dent MD Primary Care Provider [phone] Allergies No known active allergies Medications amLODIPine (NORVASC) 10 MG tablet Take 1 tablet (10 mg total) by mouth daily. 3 Active dapagliflozin 5 MG tablet Take 1 tablet (5 mg total) by mouth daily. 3 Active losartan (COZAAR) 50 MG tablet Take 1 tablet (50 mg total) by mouth daily. 3 Active Icosapent Ethyl (Vascepa) 1 g Cap Take 2 g by mouth daily. 3 Active tamsulosin (FLOMAX) 0.4 MG capsule Take 1 capsule (0.4 mg total) by mouth daily. 3 Active hydrALAZINE (APRESOLINE) 50 MG tablet Take 0.5 tablets (25 mg total) by mouth 3 (three) times a day. Active cloNIDine (CATAPRES) 0.2 MG tabletIndications :Hypertensive emergency,Elevate d serum creatinine,Benign hypertension with CKD (chronic kidney disease) stage III (HCC),Abnormal EKG,Poor hypertension control Take 1 tablet (0.2 mg total) by mouth 3 (three) times a day. 90 tablet 3 Active Active Problems Problem Noted Date Diagnosed Date Chest pain 06/09/2023 Post-traumatic macular scar of right eye 023 06/09/2023 Class 1 obesity 06/09/2023 06/09/2023 Benign hypertension with CKD (chronic kidney disease) stage III 06/09/2023 06/09/2023 Elevated troponin level 06/09/2023 DIAZ (dyspnea on exertion) 06/09/2023 Hypertensive emergency 06/09/2023 Abnormal EKG 06/09/2023 Vertigo 05/31/2023 06/09/2023 Poor hypertension control 08/03/20052022 Immunizations Immunization Administration Dates Next Due Covid-19 mRNA Primary Series Vaccine - Moderna 0.5 mL Full Dose 10/30/2020,10/03/2020 Family History Medical History Relation Name Comments No Known Problems Father healthy 98 Diabetes Mother Kidney disease Mother Diabetes Sister Relation Name Status Comments Father Mother Sister Social History Tobacco Use Types Packs/Day Years Used Date Smoking Tobacco: Never Smokeless Tobacco: Never Tobacco Cessation:Counseling Given: Not Answered Alcohol Use Standard Drinks/Week Comments Never 0 (1 standard drink = 0.6 oz pur e alcohol) Sex and Gender Information Value Date Recorded Sex Assigned at Male 06/08/2023 7:05 PM EST Legal Sex Male 12:54 PM EST Gender Identity Male 06/08/2023 7:05 PM EST Sexual Orientation Heterosexual (straight) 06/08 7:05 PM EST Last Filed Vital Signs Vital Sign Reading Time Taken Comments Blood Pressure 148/98 06/09/2023 10:49 AM EST Pulse 98 06/09/2023 10:49 AM EST Temperature 36.7 C (98.1 F) 06/09/2023 10:49 AM EST Respiratory Rate 18 06/09/2023 10:49 AM EST Oxygen Saturation 100% 06/09/2023 10:49 AM EST Inhaled Oxygen Concentration - - Weight - - Height - - Body Mass Index - - Plan of Treatment Health Maintenance Due Date Last Done Comments Hepatitis C Virus Screening 1963 HIV Screening 1976 DTaP/Tdap/Td Vaccines (1 - Tdap) 1982 Colonoscopy 2008 Pneumococcal Vaccines 50+ (1 of 1 - PCV) 2013 Zoster (Shingles) Vaccine (1 of 2) 2013 RSV Vaccine 60 years and older and Patients (1 - Risk 60-74 years 1-dose series) 2023 COVID-19 Vaccine (3 - 2023-2 5 season) 2024 10/30/2020, 10/03/2020 Influenza Vaccine 03/01/2025 Hepatitis B Vaccines Aged Out No long er eligible based on patient's age to complete this topic Insurance [facility] Advance Directives * Full Code (Latest Code Status on File) Date Activated Date Inactivated Comments 06/09/2023 3:59 AM Care Teams Configuration Specialist Relationship Specialty Start Date End Date Regulo Dent MD [address] [address] PCP - General 06/08/23
--- OUTSIDE RECORDS SUMMARY | 2025-01-31 15:03 | XMS_ITS ---
Author Name [facility] Organization Unknown Encounters Encounter Type Encounter Reason Primary Diagnosis Location Date Ambulatory [facility] 09/09/2023 Observation Essential (primary) hypertension Essential (primary) hypertension [facility] 06/08/2023 Care Team Organization Name Specialty Phone Email Start Date End [facility] 09/10/2023 [facility] 06/08/2023 10/17/2024 [facility] Primary [facility] 06/08/2023 023 [facility] 06/08/2023 06/08/2023
[2025-02-06 12:08] VITALS: BMI 28.9
--- NOTE | 2025-02-12 10:47 | HO.ANESPROP2 ---
Documented by User: Malia Lazar NP 02/12/25 11:37 HPI - Anesthesia Eval Consult details Narrative: 59yo M for Right lateral rectus Eye Muscle Recession/Resection, Right medial rectus resection Medically optimized per PCP - no cardiac issue with daily activity level >[address] (Creat 2.63 on 12/2024) - stable per clearance note Last EKG [facility] Past Medical History Medical History (Updated 02/12/25 @ 10:47 by Malia Lazar NP) Pneumonia PVD (peripheral vascular disease) Sleep apnea Habitual snoring Anemia CKD (chronic kidney disease) Obesity Noncompliance with medications Albuminuria Hyperplasia of prostate without urinary obstruction Anxiety Hyperlipidemia HTN (hypertension) Surgical History Surgical History (Updated 02/13/25 @ 08:55 by Neyda Campa RN) History of surgery Social History Social History Are you a primary animal care taker to a significant other at home: No Patient Tobacco Use Status: Never used Tobacco Use of substances other than those prescribed or required for medical reasons: No Are you DNR?: No Advance Directives: No Advance Directives Information Provided: Yes Advance Directives on File: No Meds Allergies Allergy/AdvReac Type Severity Reaction Status Date / Time lisinopril Allergy Intermediate Cough Verified 02/13/25 08:40 Home Medications ?Medication ?Instructions ?Recorded ?Confirmed ?Last Taken ?Type alprazolam 0.25 mg tablet 0.25 mg PO DAILY PRN Anxiety 02/06/25 02/13/25 Unknown History amlodipine 10 mg tablet 10 mg PO DAILY 02/06/25 02/13/25 02/13/25 History carvedilol 12.5 mg tablet 12.5 mg PO BID 02/06/25 02/13/25 02/13/25 History dapagliflozin propanediol 10 mg 10 mg PO DAILY 02/06/25 02/13/25 02/10/25 History tablet icosapent ethyl 1 gram capsule 2 g PO BID 02/06/25 02/13/25 02/12/25 History losartan 100 mg tablet 100 mg PO DAILY 02/06/25 02/13/25 02/12/25 History Exam Height,Weight and Vital Signs: Height 5 ft 11 in Weight 93.894 kg Documented by User: Crystal Hayes MD 02/13/25 08:59 [facility] Past Medical History Medical History (Updated 02/12/25 @ 10:47 by Malia Lazar NP) Pneumonia PVD (peripheral vascular disease) Sleep apnea Habitual snoring Anemia CKD (chronic kidney disease) Obesity Noncompliance with medications Albuminuria Hyperplasia of prostate without urinary obstruction Anxiety Hyperlipidemia HTN (hypertension) Family History Family history of problems with anesthesia: No Surgical History Surgical History (Updated 02/13/25 @ 08:55 by Neyda Campa RN) History of surgery History of Problems with Anesthesia: No Social History Social History Are you a primary animal care taker to a significant other at home: No Patient Tobacco Use Status: Never used Tobacco Use of substances other than those prescribed or required for medical reasons: No Are you DNR?: No Advance Directives: No Advance Directives Information Provided: Yes Advance Directives on File: No Meds Allergies Allergy/AdvReac Type Severity Reaction Status Date / Time lisinopril Allergy Intermediate Cough Verified 02/13/25 08:40 Home Medications ?Medication ?Instructions ?Recorded ?Confirmed ?Last Taken ?Type alprazolam 0.25 mg tablet 0.25 mg PO DAILY PRN Anxiety 02/06/25 02/13/25 Unknown History amlodipine 10 mg tablet 10 mg PO DAILY 02/06/25 02/13/25 02/13/25 History carvedilol 12.5 mg tablet 12.5 mg PO BID 02/06/25 02/13/25 02/13/25 History dapagliflozin propanediol 10 mg 10 mg PO DAILY 02/06/25 02/13/25 02/10/25 History tablet icosapent ethyl 1 gram capsule 2 g PO BID 02/06/25 02/13/25 02/12/25 History losartan 100 mg tablet 100 mg PO DAILY 02/06/25 02/13/25 02/12/25 History Exam Airway Mallampati Class: II (caps on top front teeth) TM Dist: >3cm Neck ROM: Full Denture: Upper Heart: rrr Lungs: cta Assessment and Plan Assessment Anesthesia Assessment: Anesthesia Plan Discussed and Chart Reviewed Final Anesthetic Review Family History of Problems with Anesthesia: No History of Problems with Anesthesia: No NPO: Yes ASA Class: III Final Preanesthetic Review: No Changes in Pt Med Stat, Meds/Allgs Chart Reviewed and Consent Obtained/Reviewed Patient Risk: Intermediate Procedure Risk: Intermediate Anesthetic Plan Anesthetic Plan: GA Disposition: Standard PACU
[2025-02-13 08:50] VITALS: BMI 29.7
[2025-02-13 09:00] VITALS: BP 168/97; PULSE 112; RESP 16; TEMP 36.2; O2SAT 99
--- NOTE | 2025-02-13 09:06 | ECG_ITS ---
Test Reason : inverted T waves Blood Pressure : */* mmHG Vent. Rate : 54 BPM Atrial Rate : 54 BPM P-R Int : 178 ms QRS Dur : 82 ms QT Int : 506 ms P-R-T Axes : 27 -13 226 degrees QTcB Int : 479 ms Sinus bradycardia Deep T inversion in anterior leads, mild T inversion lateral leads Prolonged QT Abnormal ECG No previous ECGs available Referred By: Crystal Hayes Electronically Signed By: JIMBO WILKINSON
--- NOTE | 2025-02-13 09:30 | PC.NURSE ---
Patient in preop. ST with inverted T wave noted on monitor. No EKG on file for comparison. Call placed to PCP as well as [facility] cardiology records obtained. Last EKG noted to also have inverted T waves. Previous stress test and echo results also obtained. All records shared with anesthesia Dr. Hayes. No new orders at this time. Okay to proceed with surgery.
[2025-02-13] MEDS: Lactated Ringers 1,000 ML 100 ML IVCONT (09:53)
--- NOTE | 2025-02-13 11:08 | P.OPHTHAL_ITS ---
Ophthalmology Operative Note Date of Service: 02/13/25 Narrative: Diagnosis 1. Right exotropia 2. Right hypertropia. Postoperative diagnosis same. Procedures 1. Recession of right lateral rectus 10 mm 2. Resection of right medial rectus 8 mm 3. Superior transposition of both muscles. Surgeon Dr. Magallanes. Anesthesia general. Complications none. The patient was brought to the operative room placed under general anesthesia. The right eye was prepped and draped in the usual sterile ophthalmic fashion. A lid speculum was placed in the eye and a peritomy was created around the lateral rectus muscle. The muscle was disinserted from the globe and reattached to a position 10 mm po sterior to the original insertion and transposed a full tendon width upwards. Conjunctiva was closed with interrupted Vicryl sutures. A peritomy was then created around the medial rectus muscle and the muscle was hooked and secured with a muscle clamp. It was dissected free of its surrounding fascial attachments and an 8 mm resection was marked off with cautery. The resection point was secured with a double-armed Vicryl suture and the distal muscle resected. The resection point was then drawn forward to the original insertion and transposed superiorly 1 tendon width. Conjunctiva was closed with interrupted Vicryl sutures. The patient was then awoken from general anesthesia and discharged to postoperative recovery in good condition.
[2025-02-13 11:12] VITALS: BP 104/72; PULSE 67; RESP 16; TEMP 36.2; O2SAT 92
[2025-02-13 11:17] VITALS: BP 113/73; PULSE 65; RESP 16; O2SAT 94
[2025-02-13 11:22] VITALS: BP 117/81; PULSE 62; RESP 16; O2SAT 94
[2025-02-13 11:37] VITALS: BP 135/93; PULSE 64; RESP 16; O2SAT 95
[2025-02-13 11:58] VITALS: BP 140/90; PULSE 58; RESP 16; TEMP 36.3; O2SAT 97
[2025-02-13] MEDS: Tetracaine HCl/PF 0.5% Oph Sol 4 ML DROPS 1 DROP EYE-RIGHT ×2 (12:38→13:00)
== END 2025-02-13 13:10 | disposition home or self-care (01) ==
PROVIDERS: PCP Internal Medicine; Visit Provider Ophthalmology
PROC: (CPT 67312; principal; 2025-02-13 10:40)
DX: H50.111 Monocular exotropia, right eye (principal); H50.21 Vertical strabismus, right eye; I12.9 Hypertensive chronic kidney disease with stage 1 through stage 4 chronic kidney disease, or unspecified chronic kidney disease; N18.4 Chronic kidney disease, stage 4 (severe); N25.81 Secondary hyperparathyroidism of renal origin; D64.9 Anemia, unspecified; E78.2 Mixed hyperlipidemia; Z88.8 Allergy status to other drugs, medicaments and biological substances; Z79.899 Other long term (current) drug therapy
CPT/HCPCS: 67312; 67320; 93005; J0461; J1100; J1885; J2003; J2250; J2405; J2704; J3010

== ENCOUNTER → 2025-02-13 09:06 | Outpatient (BNV) | payer OTHER, SELFPAY | PROVIDERS: PCP Internal Medicine; Visit Provider Internal Medicine | DX: R00.1 Bradycardia, unspecified (principal) | CPT/HCPCS: 93010 ==